=== PATIENT | female | born 1980 | race Caucasian/White ===

== ENCOUNTER 2020-02-17 | Outpatient (REF) | payer OTHER, SELFPAY ==
[2020-02-20 14:42] LABS: OBS1 NEG (NEG)
[2020-02-20 14:43] LABS: OBS Int Ctl Valid YES; OBS2 POS (NEG)
== END 2020-02-17 00:01 | disposition home or self-care (01) ==
LOC: HO.LNP
PROVIDERS: Visit Provider Physician Assistant
DX: D64.9 Anemia, unspecified (principal)
CPT/HCPCS: 82270

== ENCOUNTER → 2020-02-25 07:54 | Outpatient (REF) | payer OTHER, SELFPAY ==
--- NOTE | 2020-02-25 07:59 | CA_ITS ---
Acquisition Time: 2020-02-25 08:15:07 Total Exercise Time: 00:05:59 Test Indications: Dyspnea Medications: IRON CYMBALTA Protocol: HADLEY Max HR: 169 BPM 92% of Pred: 183 BPM Max BP: 150/084 mmHG Max Work Load: 7.0 METS Exercise stress test using Hadley protocol. Total of 5 min 59 sec. METS 7. Tolerated well. Denies any anginal sx. EKG without any arrhythmias, no ischemic changes. Normotensive response to exercise. Test reviewed with Dr. Allison. Referred By: Gene Hinson Overread By: Mehul Milton
== END ==
LOC: HO.CARD 07:54
PROVIDERS: PCP Physician Assistant; Visit Provider Physician Assistant
DX: R06.02 Shortness of breath (principal)
CPT/HCPCS: 93017

== ENCOUNTER → 2020-03-12 13:02 | Outpatient (BNVA) | payer OTHER, SELFPAY | PROVIDERS: PCP Physician Assistant; Visit Provider Advanced Practice Midwife | DX: Z76.89 Persons encountering health services in other specified circumstances (principal) ==

== ENCOUNTER 2020-03-12 16:19 | Outpatient (REF) | payer SELFPAY ==
[2020-03-13 02:42] LABS: CT PCR NOT DETECTED (Not Detect.); NG PCR NOT DETECTED (Not Detect.)
[2020-03-13 13:00] LABS: BV Int Neg Control Negative (Negative); BV Int Pos Control Positive (Positive)
[2020-03-17 19:51] LABS: HPV mRNA E6/E7 rflx Not Detected (Not Detected)
== END 2020-03-12 16:20 | disposition home or self-care (01) ==
LOC: HO.LNP 16:19
PROVIDERS: Visit Provider Advanced Practice Midwife
DX: Z01.419 Encounter for gynecological examination (general) (routine) without abnormal findings (principal)
CPT/HCPCS: 87480; 87491; 87510; 87591; 87624; 87625; 87660; 88142

== ENCOUNTER 2020-03-17 08:02 | Outpatient (REF) | payer SELFPAY | END 2020-03-17 08:03 | disposition home or self-care (01) | LOC: HO.MDS 08:02 | PROVIDERS: PCP Physician Assistant; Visit Provider Internal Medicine Medical Oncology | DX: D50.9 Iron deficiency anemia, unspecified (principal) | CPT/HCPCS: 96365; 96366; J1200; J1750; Q0163 ==

== ENCOUNTER → 2024-01-08 14:11 | Outpatient (RCR) | payer OTHER, SELFPAY ==
[2020-03-11 10:19] VITALS: BP 137/78; PULSE 90; RESP 16; TEMP 36.4; O2SAT 99
[2020-03-11 10:20] VITALS: BMI 37.0
--- NOTE | 2020-03-11 11:07 | P.CNHO_ITS ---
Subjective - Subjective Chief complaint: consult for iron deficiency anemia Patient: new to practice Primary Care Provider: Gene Hinson PA-C Medical Summary: DIAGNOSIS: 1. IRON DEFICIENCY ANEMIA. 2. ALPHA THALASSEMIA TRAIT. HPI - Consult Narrative Reason for consult: Consult for anemia. Narrative: Lonny Harrison is a pleasant 39 year old lady, who has a long history of Anemia. Likely a combination of alpha thalassemia and super added iron deficiency anemia. She tells me that she has noted increased fatigue since October. She also has had heavy periods over the years. She tells me she was told of anemia as a child and in the past has received iron injections. Anemia runs in her mother's side of the family. She started taking iron supplements in December 2015. She has had normal RBC of over 5 million, hemoglobin from 12 g per DL with microcytosis and normal RDW. Iron studies normal. Vitamin B12, folate and thyroid functions. She has mild leukopenia/neutropenia with ANC generally above 1500. She feels tired all the time. She gets short of breath on exertion. She cannot exercise. She gets sudden bouts of nausea. sometimes not related to meals. She gets occasional rectal bleeding, he attributes that to hemorrhoids. Appetite is not that good however she gained 40 lbs. Her periods were heavy. However she took oral contraceptives which have helped a lot. Her muscles are always sore. Her grandmother had MDS. She is has 3 children. Review of Systems - Constitutional Reports fatigue, Reports lack of energy, Reports malaise, Denies fever(s) - Eyes Denies blurry vision - ENT Reports system reviewed and no additional complaints, except as documented - Cardiovascular Denies chest pain at rest - Respiratory Denies chest congestion - Gastrointestinal Denies abdominal pain, Denies bloating - Genitourinary Reports abnormal periods, Reports abnormal vaginal bleeding - Musculoskeletal Reports back pain - Integumentary/Breasts Skin/Breast: Denies bleeding lesions - Psychiatric Reports anxiety - Endocrine Denies excessive sweating - Hematologic/Lymphatic Denies easy bruising - Allergic/Immunologic Denies GI upset with certain foods PMFSH Medical History: Medical History (Last Updated 03/12/20 @ 14:55 by Shakira Davis CNM) Anxiety Breast implant status Chronic neutropenia Iron deficiency Irregular intermenstrual bleeding Microcytic anemia Migraine with aura Positive TB test Premenstrual syndrome Patient : No Family History: Family History (Last Reviewed 03/12/20 @ 14:24 by Shakira Davis CNM) Maternal Grandmother MDS (myelodysplastic syndrome) Surgical History: Surgical History (Last Reviewed 03/12/20 @ 14:24 by Shakira Davis CNM) History of abdominoplasty History of breast augmentation History of delivery Smoking status: Never smoker Home Medications and Allergies Allergies Allergy/AdvReac Type Severity Reaction Status Date / Time No Known Allergies Allergy Unverified 01/29/20 18:54 [No Known Allergies*] N.K.D.A. Allergy Unknown Uncoded 12/23/19 00:00 Physical Exam Vital signs: Vital Signs Temp 97.6 F 03/11/20 10:19 Pulse 90 03/11/20 10:19 Resp 16 03/11/20 10:19 BP 137/78 03/11/20 10:19 Pulse Ox 99 03/11/20 10:19 Intake & Output 03/10/20 03/11/20 03/11/20 18:59 06:59 18:59 Other: Weight 107.4 kg Weight 107.4 kg - Constitutional Present: mild distress - Routine HEENT Exam Head: Present: normal inspection ENT: Present: mucous membranes moist - Routine Neck Exam Present: supple - Routine Respiratory Exam Present: CTAB - Routine Cardiovascular Exam Cardiovascular: Present: RRR, S1, S2 - Routine Abdominal Exam Present: soft, nontender - Routine Extremities Exam Present: nontender - Routine Back/Spine/Pelvis Exam Back/Spine: Present: full ROM - Routine Skin Exam Present: intact - Routine Neurological Exam Present: alert, oriented X3 - Detailed Neurological Exam: Coma Scale Eye Opening: Spontaneous (4) Verbal Response: Oriented (5) Motor Response: Obeys commands (6) [place] Coma Scale Total: 15 Hem/Onc Consult Result - Labs CBC & Chem 7: 03/11/20 11:16 03/11/20 11:16 Assessment and Plan (1) Microcytic anemia Status: Acute This is a pleasant 39 year-old lady with microcytic hypochromic anemia. Anemia is most likely multifactorial: 1. iron deficiency anemia related to heavy periods/ plus GI blood loss: recent iron studies consistent with iron deficiency anemia. 2. underlying alpha-thalassemia trait: in the past she had normal RBC count, microcytosis with normal RDW thalassemia trait. She has been on folic acid supplement as well. 2. She has mild leukopenia/neutropenia which is probably related to her ethnicity. I have reassured the patient that her leukopenia appear benign in nature. PLAN: I will check iron studies and a ferritin. Will arrange for IV iron. I discussed both Ferrlecit and iron dextran. She prefers to go with the latter. Will arrange in short stay surgery. She will return in 3 months for a follow up visit. I thank you very much for this consultation. CC: PATSY SANDERSON MD
[2020-03-11 11:22] LABS: MANUAL DIFF FLAG NO
[2020-03-11 11:36] LABS: Basophils Percent Auto 0.7 % (0-2); Eosinophils Absolute Auto 0.1 X10*3/uL (0.0-0.4); Eosinophils Percent Auto 1.2 % (0-4); Hematocrit 31.7 % (37-47); Hemoglobin 9.4 g/dl (12.0-16.0); Imm Gran Abs Auto 0.01 X10*3/uL (0.00-0.03); Imm Gran Pct Auto 0.2 % (0.0-0.4); Lymphocytes Absolute Auto 1.1 X10*3/uL (1.2-4.9); Lymphocytes Percent Auto 25.3 % (20-40); Mean Corpuscular HGB Conc 29.7 g/dl (31.0-35.0); Mean Corpuscular Hemoglobin 18.8 pg (27.0-33.0); Monocytes Absolute Auto 0.4 X10*3/uL (0.1-1.2); Monocytes Percent Auto 9.3 % (2-11); Neutrophils Absolute Auto 2.7 X10*3/uL (2.0-8.3); Neutrophils Percent Auto 63.3 % (45-73); Platelet Count 256 X10*3/uL (160-400); Red Cell Distribution Width 18.5 % (11.0-16.0); White Blood Count 4.3 X10*3/uL (4.8-10.8)
[2020-03-11 11:37] LABS: Mean Corpuscular Volume 63.4 fL (80-98)
[2020-03-11 11:55] LABS: Alanine Aminotransferase 15 U/L (0-31); Albumin Level 4.2 g/dL (3.5-5.0); Alkaline Phosphatase 84 U/L (39-117); Anion Gap 12 (12-20); Aspartate Amino Transferase 20 U/L (5-31); Bilirubin Total 0.6 mg/dL (0.0-1.0); Blood Urea Nitrogen 13 mg/dL (9-16); Calcium 8.9 mg/dL (8.4-10.2); Carbon Dioxide 26 mmol/L (22-29); Chloride 104 mmol/L (96-108); Creatinine Clr Calc Pharmacy 134.9; Estimated Glomerular Filt Rate > 60; Glucose Random 96 mg/dL (60-115); Potassium 4.5 mmol/l (3.3-5.1); Sodium 137 mmol/L (135-145); Total Protein 7.2 g/dL (6.5-8.0)
[2020-03-11 12:18] LABS: Ferritin 12 ng/mL (10-122)
--- NOTE | 2020-03-15 09:53 | PC.NURSE ---
Faxed Iron infusion order to [facility], [facility] then called me back with Mar 17 and Mar 19. i called patient back and discussed with her which day she would prefer, she states the . I then confirmed the with [facility]. 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
== END | disposition home or self-care (01) ==
LOC: HO.ONC 03-11 10:00
PROVIDERS: PCP Physician Assistant; Referring Provider Physician Assistant; Visit Provider Internal Medicine Medical Oncology
DX: D50.9 Iron deficiency anemia, unspecified (principal); D56.3 Thalassemia minor; Z79.899 Other long term (current) drug therapy
CPT/HCPCS: 36415; 80053; 82728; 85025; 99204

== ENCOUNTER 2024-10-08 12:59 | Outpatient (AMB) | payer OTHER, SELFPAY ==
--- NOTE | 2024-10-08 12:59 | A.OFFVIS_ITS ---
Vital Signs 10/08/24 13:09 Height 5 ft 8 in Weight 190 lb BMI 28.9 BP 127/73 Blood Pressure Location Rt brachial Position Sitting Pulse 89 Intake Visit Reasons: colonoscopy screening Intake Note: Patient here for Colonoscopy screening. Patient c/o: hemorrhoids, bleeding when constipated. 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 She had undergone colonoscopy in 2017 4 rectal bleeding and anemia.. At that time there was note of a large polyp, 1 cm in size, pedunculated at level 15 cm. This was a tubular adenoma I had recommended repeating the colonoscopy in 5 years She has not had a repeat colonoscopy since then however. She denies GI complaints. She does state that she had diverticulitis last year. She says that she still has her hemorrhoids and that she periodic bleeding from this. She also had laparoscopic cholecystectomy a few years ago [facility] Medical History (Updated 10/08/24 @ 13:35 by Carlos Andrade MD) History of colon polyps Chronic headaches Breast implant status Migraine with aura Positive TB test Microcytic anemia Irregular intermenstrual bleeding Premenstrual syndrome Anxiety Chronic neutropenia Iron deficiency Surgical History Hx laparoscopic cholecystectomy Hx of appendectomy History of breast augmentation History of abdominoplasty History of delivery Family History Maternal Grandmother MDS (myelodysplastic syndrome) Social History Are you a primary client care consultant to a significant other at home: No Alcohol intake: current Alcohol intake frequency: a few times a month Alcohol type: wine Patient Tobacco Use Status: Never used Tobacco Female Reproductive History Menstrual Age of Menarche: 15 Review of Systems Const Denies chills and Denies fever(s) Card Denies chest pain, Denies dyspnea and Denies dyspnea on exertion Resp Denies cough, Denies dyspnea and Denies dyspnea on exertion GI Denies hematochezia and Denies change in bowel habits Denies hematuria Musc Denies back pain and Denies limited range of motion Neuro Denies focal weakness and Denies convulsions Psych Denies depression and Denies mood swings Physical Exam Vital Signs: Last Vital Signs Pulse 89 10/08/24 13:09 BP 127/73 10/08/24 13:09 BMI result Body Mass Index 28.9 Const General: comfortable and no acute distress Orientation/consciousness: patient oriented x3 Neck Neck: Yes no lymphadenopathy Resp Auscultation: clear to auscultation bilaterally Cardio Rhythm: regular rhythm GI Palpation (GI): Soft to palpation, nontender and no guarding Neuro General: patient oriented x3 Assessment & Plan Assessment & Plan (1) History of colon polyps: Code(s): Z86.0100 - Personal history of colon polyps, unspecified Category: Medical Plan: She has a history of a large colon polyp removed at level 15 cm in 2017. Review of her path report shows that this was actually a juvenile retention polyp. However she says she has had some periodic bleeding still. I had recommended repeating a colonoscopy at that time in 5 years I therefore explained to her the technique of colonoscopy. I reviewed the risks including but not limited to bleeding, infections, perforation, as well as the benefits and alternatives She says she wants to proceed Medications: New sodium,potassium,mag sulfates 17.5-3.13-1.6 gram (Suprep Bowel Prep Kit) DILUTE; drink full amount early evening before AND next morning at least 2 hr before procedure; follow w 960 mL water PO 354 mL 0RF Coding Level of Care Code New Pt Level 3 (95958) Diagnoses History of colon polyps Z86.0100
[2024-10-08 13:09] VITALS: BP 127/73; PULSE 89; BMI 28.9
== END 2024-10-08 13:31 | disposition home or self-care (01) ==
PROVIDERS: PCP Internal Medicine; Visit Provider Surgery
DX: Z86.0100 Personal history of colon polyps, unspecified (principal)
CPT/HCPCS: 99203

== ENCOUNTER → 2024-10-08 12:59 | Outpatient (BNVA) | payer OTHER, SELFPAY | PROVIDERS: PCP Internal Medicine; Visit Provider Surgery ==

== ENCOUNTER 2024-11-18 05:59 | Day surgery (SDC) | payer OTHER, SELFPAY ==
[2024-11-13 08:56] VITALS: BMI 28.9
--- NOTE | 2024-11-17 08:58 | HO.ANESPROP2 ---
Documented by User: Maribel Black NP 11/17/24 08:59 HPI - Anesthesia Eval Consult details Narrative: 44yo F for Colonoscopy with possible Polypectomy PMFSH Active Problems Active Problems: All Active Problems Vaginal irritation (Acute) Potential exposure to STD (Acute) Well woman exam with routine gynecological exam (Acute) Microcytic anemia (Acute) Obese (Acute) Low back pain (Acute) Shortness of breath on exertion (Acute) History of colon polyps (Acute) Migraine with aura (Acute) Past Medical History Medical History History of colon polyps Chronic headaches Breast implant status Migraine with aura Positive TB test Microcytic anemia Irregular intermenstrual bleeding Premenstrual syndrome Anxiety Chronic neutropenia Iron deficiency Family History Family History Maternal Grandmother MDS (myelodysplastic syndrome) Surgical History Surgical History Hx laparoscopic cholecystectomy Hx of appendectomy History of breast augmentation History of abdominoplasty History of delivery Social History Social History Are you a primary customer care consultant to a significant other at home: No Alcohol intake: current Alcohol intake frequency: holidays/special occasions only Alcohol type: wine Patient Tobacco Use Status: Never used Tobacco Use of substances other than those prescribed or required for medical reasons: No Have you been hit, kicked, punched, or otherwise hurt by someone within the past year? If so, by whom?: No Are you DNR?: No Advance Directives: No Advance Directives Information Provided: Yes Meds Allergies Allergy/AdvReac Type Severity Reaction Status Date / Time Iodinated Contrast Media Allergy Hives Verified 11/18/24 06:04 (Contrast Dye) Home Medications ?Medication ?Instructions ?Recorded ?Confirmed ?Last Taken ?Type amitriptyline 10 mg tablet 10 mg PO BEDTIME 10/08/24 11/18/24 Unknown History Exam Height,Weight and Vital Signs: Height 5 ft 8 in Weight 86.183 kg Assessment and Plan Assessment Anesthesia Assessment: Chart Reviewed Documented by User: Sarath Anders MD 11/18/24 07:22 [facility] Past Medical History Medical History History of colon polyps Chronic headaches Breast implant status Migraine with aura Positive TB test Microcytic anemia Irregular intermenstrual bleeding Premenstrual syndrome Anxiety Chronic neutropenia Iron deficiency Cognitive capacity: oriented times 3, No cognitive dysfunction Functional capacity: independent ambulation Family History Family History Maternal Grandmother MDS (myelodysplastic syndrome) Family history of problems with anesthesia: No Surgical History Surgical History Hx laparoscopic cholecystectomy Hx of appendectomy History of breast augmentation History of abdominoplasty History of delivery History of Problems with Anesthesia: No Social History Social History Are you a primary customer care consultant to a significant other at home: No Alcohol intake: current Alcohol intake frequency: holidays/special occasions only Alcohol type: wine Patient Tobacco Use Status: Never used Tobacco Use of substances other than those prescribed or required for medical reasons: No Have you been hit, kicked, punched, or otherwise hurt by someone within the past year? If so, by whom?: No Are you DNR?: No Advance Directives: No Advance Directives Information Provided: Yes Meds Allergies Allergy/AdvReac Type Severity Reaction Status Date / Time Iodinated Contrast Media Allergy Hives Verified 11/18/24 06:04 (Contrast Dye) Home Medications ?Medication ?Instructions ?Recorded ?Confirmed ?Last Taken ?Type amitriptyline 10 mg tablet 10 mg PO BEDTIME 10/08/24 11/18/24 Unknown History Exam Exam Date and Time: 11/18/2024 Airway Mallampati Class: I TM Dist: >3cm Neck ROM: Full Loose/Missing/Broken Teeth: No (normal dentition. has braces) Heart: rrr Lungs: cta Other: normal healthy 44 year old female Assessment and Plan Assessment Anesthesia Assessment: Anesthesia Plan Discussed Final Anesthetic Review Family History of Problems with Anesthesia: No History of Problems with Anesthesia: No NPO: Yes ASA Class: II Final Preanesthetic Review: No Changes in Pt Med Stat, Meds/Allgs Chart Reviewed, Consent Obtained/Reviewed and Anes Risks/Benef Reviewed Patient Risk: Low Procedure Risk: Low Anesthetic Plan Anesthetic Plan: MAC: Disposition: Standard PACU
[2024-11-18 06:19] VITALS: BP 109/74; PULSE 78; RESP 16; TEMP 36.6; O2SAT 100; BMI 29.6
[2024-11-18 06:22] LABS: UPreg QC Valid YES
[2024-11-18] MEDS: Lactated Ringers 1,000 ML 100 ML IVCONT (06:26)
--- NOTE | 2024-11-18 07:19 | MHC.SHP ---
Pre-Procedural Eval Section A - 24 Hr Update-Section A only Date of Service: 11/18/24 Section B - Complete if H&P > 30 days Chief Complaint: Personal history of colon polyps, unspecified Details of Present Illness: Has a history of a large polyp in 2017 Relevant Family History (Specify if Yes): No Relevant Social History: None Present Medications: see Short Stay Collaborative assessment Medical History: Significant History (Anemia, back pain, migraine) Allergies: Allergies Allergy/AdvReac Type Severity Reaction Status Date / Time Iodinated Contrast Media Allergy Hives Verified 11/18/24 06:04 (Contrast Dye) Review of Systems Sugical H&P ROS: Negative: Constitution, Cardiovascular, Respiratory and Gastrointestinal Exam Surgical H&P Exam: Normal: Heart, Normal: Lungs and Normal: Abdomen Plan Diagnosis/Plan: Unchanged I have reviewed the history and physical and performed a pertinent physical examination on my patient. No changes have occurred unless specified. Time Spent With Patient Time: Total time managing care of this patient today ____ minutes.
--- NOTE | 2024-11-18 08:00 | W.PM.OPN ---
Operative Note Operative Note Date of Service: 11/18/24 Narrative: Preop diagnosis: History of large polyp Postop diagnosis: 1. Mild sigmoid diverticulosis 2. Prominent internal external hemorrhoids Procedure: Colonoscopy Surgeon: Carlos Andrade MD The patient is a 44 year old female who had a colonoscopy 2016 and had a large polyp removed. She is here for follow-up colonoscopy. She understands the technique of the planned procedure as was the risks, benefits, and alternatives The patient was brought to the operating room and placed in left lateral decubitus position under monitored anesthesia care. A surgical time-out was done. A full digital rectal exam was done and this did not reveal any significant anal lesions. The tip of the Olympus colonoscope was gently introduced through the anal orifice advanced with insufflation all the way to the cecum. The cecum was intubated. The cecum was identified by visualization of the ileocecal valve as well as the appendiceal orifice. The cecal mucosa was unremarkable. The scope was gradually withdrawn with careful examination of the entire colonic mucosa being done with scope withdrawal. The patient had good bowel prep so it was unlikely that any lesion may have been missed. There was note of mild sigmoid diverticulosis. The rectum was reached and there were no lesions seen. There were prominent internal external hemorrhoids.. The scope was then withdrawn completely with desufflation The patient tolerated the procedure well. There were no immediate complications. She falls at average risk for colon cancer so her next colonoscopy may be in the next 10 years.
[2024-11-18 08:01] VITALS: BP 114/60; PULSE 82; RESP 16; TEMP 36.9; O2SAT 100
[2024-11-18 08:16] VITALS: BP 112/52; PULSE 70; RESP 16; TEMP 36.3; O2SAT 100
== END 2024-11-18 08:56 | disposition home or self-care (01) ==
PROVIDERS: Nurse Practitioner; PCP Internal Medicine; Visit Provider Surgery
PROC: 0DBE8ZZ Excision of Large Intestine, Via Natural or Artificial Opening Endoscopic (ICD-10-PCS; CPT 45378; principal; 2024-11-18 07:30)
DX: Z12.11 Encounter for screening for malignant neoplasm of colon (principal); Z86.0101 Personal history of adenomatous and serrated colon polyps; K64.8 Other hemorrhoids; K64.4 Residual hemorrhoidal skin tags; D50.9 Iron deficiency anemia, unspecified; K57.30 Diverticulosis of large intestine without perforation or abscess without bleeding; Z87.19 Personal history of other diseases of the digestive system; D70.9 Neutropenia, unspecified; F41.9 Anxiety disorder, unspecified; G43.109 Migraine with aura, not intractable, without status migrainosus; Z98.82 Breast implant status; Z90.49 Acquired absence of other specified parts of digestive tract; Z79.899 Other long term (current) drug therapy; Z91.041 Radiographic dye allergy status; Z98.890 Other specified postprocedural states
CPT/HCPCS: 45378; 81025; J2704

== ENCOUNTER → 2024-11-18 05:59 | Outpatient (BNV) | payer OTHER, SELFPAY | PROVIDERS: PCP Internal Medicine; Visit Provider Surgery | DX: Z12.11 Encounter for screening for malignant neoplasm of colon (principal); K63.5 Polyp of colon; K57.90 Diverticulosis of intestine, part unspecified, without perforation or abscess without bleeding; Z86.0100 Personal history of colon polyps, unspecified | CPT/HCPCS: 45378 ==